=== PATIENT | female | born 1960 | race Caucasian/White ===

== ENCOUNTER → 2018-12-03 08:06 | Day surgery (SDC) | payer BC ==
[~2018-12-03 08:06] MED LIST: Buffered Lidocaine 1% SYRIN* 1 ML/SYRINGE INTRADERM ONE; Dexamethasone IV* 4 MG/ML 1 ML (4 MG) IV SLOW PU ONE; Dexamethasone IV* 4 MG/ML 1 ML (4 MG) ONE; DiMENhydriNATE IV* 50 MG/ML VIAL IV PUSH PRN; Famotidine IV* 10 MG/ML 2 ML (20 mg) IV ONE; Famotidine IV* 10 MG/ML 2 ML (20 mg) ONE; Ketorolac INJ* 30 MG/ML 1 ML VIAL IV PUSH ONE; Ketorolac INJ* 30 MG/ML 1 ML VIAL ONE; Lactated Ringers 1000 ML Bag* 1,000 ML IV SCH; Lidocaine 2% PF * 5 ML VIAL ONE; Midazolam* 1 MG/ML 2 ML VIAL (2 MG) ONE; Naloxone* 0.4 MG/ML 1 ML VIAL IV PRN; Ondansetron INJ* 2 MG/ML VIAL ONE; Propofol* 10 MG/ML 20 ML BTL ONE; Scopolamine 1.5 mg* PATCH ONE; Scopolamine 1.5 mg* PATCH TRANSDERM SCH; fentaNYL* 50 MCG/ML 2 ML VIAL (100 MCG VIAL) IV PRN; fentaNYL* 50 MCG/ML 2 ML VIAL (100 MCG VIAL) ONE
--- NOTE | 2018-12-03 10:35 | OP ---
OPERATIVE REPORT: DATE OF OPERATION: 12/03/18 DATE OF : 62 SURGEON: Lambert Mojica MD. ANESTHESIA: General endotracheal tube. CELLULAR EQUIPMENT INSTALLER: None. PRE-OP DIAGNOSES: Postmenopausal bleeding and endometrial polyp. POST-OP DIAGNOSES: Postmenopausal bleeding and endometrial polyp. OPERATIVE PROCEDURE: D and C hysteroscopy with MyoSure. FINDINGS: On hysteroscopy, there was a distorted cavity consistent with her ablation and a small 3 m m polyp within it. COMPLICATIONS: None. DESCRIPTION OF PROCEDURE: The patient identified, procedure identified as D and C hysteroscopy and p olypectomy. The patient was taken to the operating room, prepped and draped in the usual fashion in the dorsal lithotomy position under general anesthesia. Two single-tooth tenaculums were placed on t he anterior lip of the cervix. The cervix was easily dilated up to a #25 Andrea dilator. The hysteros cope was inserted. The above findings were noted. The hysteroscope with the MyoSure LITE was utiliz ed to resect the endometrial polyp and take a small sample of the endometrium. The cavity was distor tiffanie, but no excessive fluffy tissue was seen, just appropriate scarring. The patient tolerated the p rocedure well. Sponge and instrument counts were correct and the patient returned to recovery room i n stable condition. [id number]/[facility] #: [id number]
[2018-12-03 11:22] VITALS: BP 142/99
== END | disposition home or self-care (01) ==
LOC: OR 08:06
PROVIDERS: ATTEND Obstetrics & Gynecology
DX: N95.0 Postmenopausal bleeding (principal); N84.0 Polyp of corpus uteri; E03.9 Hypothyroidism, unspecified; M96.1 Postlaminectomy syndrome, not elsewhere classified; F32.9 Major depressive disorder, single episode, unspecified; E78.5 Hyperlipidemia, unspecified
CPT/HCPCS: 88305; A9270-GY; J1100; J1885; J2250; J2405; J2704; J3010